=== PATIENT | female | born 1975 | race African-American/Black ===

== ENCOUNTER 2022-03-02 10:54 | Outpatient (REF) | payer OTHER, SELFPAY ==
[2022-03-02 11:25] LABS: MANUAL DIFF FLAG NO
[2022-03-02 11:44] LABS: Basophils Percent Auto 0.6 % (0-2); Eosinophils Absolute Auto 0.1 X10*3/uL (0.0-0.4); Eosinophils Percent Auto 1.2 % (0-4); Hematocrit 39.2 % (37.0-47.0); Hemoglobin 12.4 g/dl (12.0-16.0); Imm Gran Abs Auto 0.01 X10*3/uL (0.00-0.03); Imm Gran Pct Auto 0.2 % (0.0-0.4); Lymphocytes Absolute Auto 1.6 X10*3/uL (1.2-4.9); Lymphocytes Percent Auto 31.5 % (20-40); Mean Corpuscular HGB Conc 31.6 g/dl (31.0-35.0); Mean Corpuscular Hemoglobin 28.6 pg (27.0-33.0); Mean Corpuscular Volume 90.3 fL (80.0-98.0); Monocytes Absolute Auto 0.2 X10*3/uL (0.1-1.2); Neutrophils Absolute Auto 3.1 x10*3/uL (2.0-8.3); Neutrophils Percent Auto 62.5 % (45-73); Platelet Count 265 X10*3/uL (160-400); Red Blood Count 4.34 X10*6/uL (4.20-5.50); Red Cell Distribution Width 13.5 % (11.0-16.0)
[2022-03-02 12:23] LABS: Anion Gap 10 (12-20); Blood Urea Nitrogen 8 mg/dL (9-16); C Reactive Protein 0.28 mg/dL (< or = 0.50); Calcium 9.1 mg/dL (8.4-10.2); Carbon Dioxide 26 mmol/L (22-29); Chloride 104 mmol/L (96-108); Estimated Glomerular Filt Rate > 60; Glucose Random 79 mg/dL (60-115); Potassium 3.8 mmol/L (3.3-5.1); Rheumatoid Factor < 13.0 IU/mL (<15.0); Sodium 136 mmol/L (135-145)
[2022-03-02 13:20] LABS: Erythrocyte Sedimentation Rate 13 MM/HR (0-20)
[2022-03-02 13:43] LABS: Creatinine Urine 187.23 mg/dL; Protein/Creatinine Ratio, Ur 0.06 (<0.2); Total Protein Urine Random 11 mg/dL (<12)
[2022-03-04 14:13] LABS: Cardiolipin IgG Ab <2.0 GPL-U/mL
[2022-03-04 23:34] LABS: Anti DNA DS Antibody 1 IU/mL; SM/Ribonucleoprotein Ab <1.0 NEG AI (<1.0 NEG); Smith Protein <1.0 NEG AI (<1.0 NEG)
[2022-03-05 05:39] LABS: Lyme Abs Screen <0.90 index
[2022-03-05 13:54] LABS: Beta-2 Glycoprotein IgA <2.0 U/mL (<20.0); Beta-2 Glycoprotein IgG <2.0 U/mL (<20.0); Beta-2 Glycoprotein IgM 3.7 U/mL (<20.0)
[2022-03-05 14:04] LABS: Cyclic Citrullinated Peptide <16 UNITS
[2022-03-05 22:19] LABS: PTT (LAC) Screen 35 sec (<=40)
== END 2022-03-02 10:55 | disposition home or self-care (01) ==
LOC: HO.10HDL 10:54
PROVIDERS: Visit Provider Internal Medicine Rheumatology
DX: M25.561 Pain in right knee (principal); M25.562 Pain in left knee; R76.8 Other specified abnormal immunological findings in serum; Z86.73 Personal history of transient ischemic attack (TIA), and cerebral infarction without residual deficits
CPT/HCPCS: 36415; 80048; 84156; 85025; 85597; 85613; 85652; 85730; 86140; 86146; 86147; 86200; 86225; 86235; 86431; 86617; 86618; 99202